=== PATIENT | female | born 1945 | race Caucasian/White ===

== ENCOUNTER 2022-07-06 15:41 | Emergency (ER) | payer MEDICARE, OTHER ==
[2022-07-06 17:10] LABS: CHLORIDE,CL 100 mEq/L (98-106); SODIUM,NA 139 mEq/L (136-145)
[2022-07-06 17:11] LABS: ESTIMATED GFR 52 mL/min (>=60)
== END 2022-07-06 17:50 | disposition home or self-care (01) ==
LOC: CC.ED 15:41
DX: R55 Syncope and collapse (principal); R42 Dizziness and giddiness; Z20.822 Contact with and (suspected) exposure to COVID-19
CPT/HCPCS: 36415; 80053; 81001; 84484; 85025; 93005; 99284; U0002; 93010